=== PATIENT | male | born 1960 | race Caucasian/White ===

== ENCOUNTER 2017-07-04 20:37 | Emergency (ER) | payer OTHER ==
[2017-07-04 21:06] VITALS: RESP 18
[2017-07-04 22:29] VITALS: BP 170/92; PULSE 80; TEMP 98.4
--- NOTE | 2017-07-05 18:45 | ED ---
General Adult HPI - General Source: patient, RN notes reviewed Mode of arrival: ambulatory Limitations: no limitations <Khoi Mcgee - Last Filed: 07/05/17 18:35> <Imtiaz Toledo - Last Filed: 07/09/17 10:03> - General Chief complaint: Eye Problems Stated complaint: eye problems Time Seen by Provider: 07/04/17 21:16 - History of Present Illness Initial comments: 57-year-old male presents the emergency department for periorbital swelling 2 days. Patient states he is staying at [facility] and believes he is ALLERGIC to the bedding or something in the house. Patient states this has happened to him before when he stayed with his sister in [place]. He states at that time he believed it was due to an ALLERGIC reaction to environmental agents as well. Patient has no change in vision. Patient has no pain in the eye. Patient has no itchiness of the globe of the eye. Patient denies any injury or trauma to the eye. Patient denies any rash, swelling of the throat lips or tongue, or shortness of breath. Patient denies any other complaints at this time including headache, shortness of breath, chest pain, abdominal pain, nausea or vomiting. (Khoi Mcgee) - Related Data Previous Rx's Medication Instructions Recorded Loratadine [Claritin] 10 mg PO DAILY #20 tab 07/04/17 Olopatadine HCl [Patanol] 1 drop OP BID 5 Days drops 07/04/17 Allergies Allergy/AdvReac Type Severity Reaction Status Date / Time No Known Allergies Allergy Verified 07/04/17 21:06 Review of Systems ROS Other: All systems not noted in ROS Statement are negative. <Khoi Mcgee - Last Filed: 07/05/17 18:35> ROS Other: All systems not noted in ROS Statement are negative. <Imtiaz Toledo - Last Filed: 07/09/17 10:03> ROS Statement: Those systems with pertinent positive or pertinent negative responses have been documented in the HPI. Past Medical History Past Medical History: Hypertension History of Any Multi-Drug Resistant Organisms: None Reported Past Surgical History: Orthopedic Surgery Past Psychological History: No Psychological Hx Reported Smoking Status: Current every day smoker Past Alcohol Use History: Abuse Past Drug Use History: None Reported <Khoi Mcgee - Last Filed: 07/05/17 18:35> General Exam Limitations: no limitations General appearance: alert, in no apparent distress Head exam: Present: atraumatic, normocephalic, normal inspection Eye exam: Present: PERRL, EOMI, periorbital swelling (There is periorbital swelling noted of the left eye. No erythema of the eye or around the eye. No swelling around the right eye.). Absent: scleral icterus, conjunctival injection, nystagmus, periorbital tenderness ENT exam: Present: normal exam, normal oropharynx, mucous membranes moist, TM's normal bilaterally Neck exam: Present: normal inspection, full ROM. Absent: tenderness, meningismus, lymphadenopathy Respiratory exam: Present: normal lung sounds bilaterally. Absent: respiratory distress, wheezes, rales, rhonchi, stridor Cardiovascular Exam: Present: regular rate <Khoi Mcgee - Last Filed: 07/05/17 18:35> Vital Signs 07/04/17 07/04/17 21:02 22:23 Temperature 98.7 F 98.4 F Pulse Rate 89 80 Respiratory 18 18 Rate Blood Pressure 183/113 170/92 O2 Sat by Pulse 96 100 Oximetry Medical Decision Making <Khoi Mcgee - Last Filed: 07/05/17 18:35> <Imtiaz Toledo - Last Filed: 07/09/17 10:03> - Medical Decision Making 57-year-old male presents to the emergency department for a chief complaint of left periorbital swelling. Patient states this has been going on for 2 days. He is staying in a new environment. He is staying at [facility] for alcoholism. Patient states he believes is due to ALLERGIES and has happened before. Patient states he was given Benadryl at [facility] which helped somewhat. Patient has no pain in the eye or visual changes. He was given a prescription for Claritin and olopatadine drops. He was told he can take Claritin during the day and Benadryl at night. He is to follow up with primary care in 1-2 days. He is to return to the emergency department if he begins to develop worsening symptoms, pain in the eye, or visual changes. He is to return if he develops swelling in the throat lips or tongue or has difficulty breathing. (Khoi Mcgee) I saw this patient in conjunction with the physician teachers assistant. I performed independent history and physical exam. Agree with case management. (Imtiaz Toledo) Disposition Is patient prescribed a controlled substance at d/c from ED?: No Time of Disposition: 18:45 <Khoi Mcgee - Last Filed: 07/05/17 18:35> <Imtiaz Toledo - Last Filed: 07/09/17 10:03> Clinical Impression: Periorbital swelling Disposition: HOME SELF-CARE Condition: Good Additional Instructions: Please return to the emergency department if you have any worsening symptoms or experience visual changes. Otherwise follow-up with primary care provider in one to 2 days. Use prescriptions as directed. You may take Claritin in the day and Benadryl at night. Prescriptions: Loratadine [Claritin] 10 mg PO DAILY #20 tab Olopatadine HCl [Patanol] 1 drop OP BID 5 Days drops Referrals: None,Stated [Primary Care Provider] - 1-2 days
== END 2017-07-04 22:33 | disposition home or self-care (01) ==
LOC: EC 20:37
DX: H57.8 Other specified disorders of eye and adnexa (principal); F10.20 Alcohol dependence, uncomplicated; F17.200 Nicotine dependence, unspecified, uncomplicated; Z91.048 Other nonmedicinal substance allergy status
CPT/HCPCS: 99283